=== PATIENT | male | born 1945 | race Caucasian/White ===

== ENCOUNTER 2017-08-01 05:07 | Day surgery (SDC) | payer MEDICARE, BC ==
[2017-07-31 13:13] LABS: BASOPHILS % (AUTO) 0.4 % (0-1); EOSINOPHILS # (AUTO) 0.5 X10'3 (0-0.9); EOSINOPHILS % (AUTO) 6.1 % (0-6); HEMATOCRIT 36.1 % (42.0-52.0); HEMOGLOBIN 11.9 g/dl (14.0-17.9); LYMPHOCYTES # (AUTO) 1.2 X10'3 (1.1-4.8); LYMPHOCYTES % (AUTO) 15.8 % (21-51); MEAN CORPUSCULAR HEMOGLOBIN 27.7 PG (27.0-31.0); MEAN CORPUSCULAR HGB CONC 32.9 % (33.0-36.5); MEAN CORPUSCULAR VOLUME 84.3 FL (78-98); MEAN PLATELET VOLUME 8.5 FL (7.4-10.4); MONOCYTES # (AUTO) 0.5 X10'3 (0-0.9); MONOCYTES % (AUTO) 7.2 % (2-12); NEUTROPHILS # (AUTO) 5.3 X10'3 (1.8-7.7); NEUTROPHILS % (AUTO) 70.5 % (42-75); PLATELET COUNT 223 X10'3 (140-440); RED BLOOD COUNT 4.28 X10'6 (4.70-6.10); RED CELL DISTRIBUTION WIDTH 15.9 % (11.5-14.5); WHITE BLOOD COUNT 7.5 X10'3 (4.5-11.0)
[2017-07-31 13:22] LABS: PROTHROMBIN TIME 10.7 SECONDS (9.0-12.0)
[2017-07-31 13:33] LABS: ANION GAP 6 (8-16); BLOOD UREA NITROGEN 24 MG/DL (7-18); BUN/CREATININE RATIO 5.1 (5.4-32.0); CHLORIDE 98 MMOL/L (99-107); CREATININE 4.68 MG/DL (0.60-1.10); GLUCOSE 122 MG/DL (70-104); POTASSIUM 3.8 MMOL/L (3.5-5.1); SODIUM 142 MMOL/L (135-145); TOTAL CARBON DIOXIDE 38.1 MMOL/L (24-32); eGFR 12 ML/MIN
[2017-07-31 13:34] LABS: ALBUMIN 3.8 G/DL (3.4-5.0); CALCIUM 8.9 MG/DL (8.5-10.1)
[2017-08-01] VITALS (20 sets, daily range): BP systolic 98–164; BP diastolic 67–104
[~2017-08-01] VITALS: Ht 198.1 cm; Wt 135.0 kg
[~2017-08-01 05:07] MED LIST: ATOR10TA70 PO; CICL6.1H4 INH; IPRA4AER IH; RIVA20TA PO; SOTA80TA69 PO; WHEA98PO PO
[2017-08-01] MEDS ORDERED: BENA20TA2 PO (05:55)
[2017-08-01] MEDS ORDERED: DICL-194 PO (05:55)
[2017-08-01] MEDS ORDERED: BECL7.3A INH (05:55)
[2017-08-01] MEDS ORDERED: atropine 0.1mg/ml 10ml syringe IV ONE (06:35)
[2017-08-01] MEDS ORDERED: LORazepam 0.5 MG tablet PO ONE (06:35)
[2017-08-01] MEDS ORDERED: morphine 10mg/ml inj. IV ONE (06:35)
[2017-08-01] MEDS ORDERED: MIDAZolam 1mg/ml 10ml vial IV ONE (06:35)
[2017-08-01] MEDS ORDERED: amiodarone in dextrose, iso-osm 150mg/100ml bag IV ONE (06:35)
[2017-08-01] MEDS ORDERED: normal saline 1000ml 1,000 ML IV SCH (06:50)
== END 2017-08-01 12:25 | disposition home or self-care (01) ==
LOC: SSTAY O 05:07
PROVIDERS: ATTEND Internal Medicine Cardiovascular Disease
DX: I48.91 Unspecified atrial fibrillation (principal); I08.0 Rheumatic disorders of both mitral and aortic valves; I10 Essential (primary) hypertension; E78.5 Hyperlipidemia, unspecified; J45.998 Other asthma; K21.9 Gastro-esophageal reflux disease without esophagitis; G47.30 Sleep apnea, unspecified; Z98.890 Other specified postprocedural states; Z79.899 Other long term (current) drug therapy
CPT/HCPCS: 36415; 80048; 85025; 85610; 92960; 93005; 93312; 93325; J0282; J2250; J2270; J7030; A4620; J0461

== ENCOUNTER 2018-10-15 06:02 | Day surgery (SDC) | payer MEDICARE, BC ==
[2018-10-14 12:10] LABS: BASOPHILS # (AUTO) 0.1 X10'3 (0-0.2); BASOPHILS % (AUTO) 1.2 % (0-1); EOSINOPHILS # (AUTO) 0.4 X10'3 (0-0.9); EOSINOPHILS % (AUTO) 7.6 % (0-6); LYMPHOCYTES # (AUTO) 0.9 X10'3 (1.1-4.8); LYMPHOCYTES % (AUTO) 16.4 % (21-51); MEAN CORPUSCULAR HEMOGLOBIN 29.8 PG (27.0-31.0); MEAN CORPUSCULAR HGB CONC 32.9 g/dL (33.0-36.5); MEAN CORPUSCULAR VOLUME 90.7 FL (78-98); MEAN PLATELET VOLUME 8.2 FL (7.4-10.4); MONOCYTES # (AUTO) 0.7 X10'3 (0-0.9); MONOCYTES % (AUTO) 12.1 % (2-12); NEUTROPHILS # (AUTO) 3.6 X10'3 (1.8-7.7); NEUTROPHILS % (AUTO) 62.7 % (42-75); PRE OP HEMATOCRIT 41.6 % (42.0-52.0); PRE OP HEMOGLOBIN 13.7 g/dL (14.0-17.9); PRE OP PLATELET COUNT 206 X10'3 (140-440); RED BLOOD COUNT 4.59 X10'6 (4.70-6.10); RED CELL DISTRIBUTION WIDTH 14.7 % (11.5-14.5)
[2018-10-14 12:22] LABS: ALBUMIN 3.6 G/DL (3.4-5.0); BLOOD UREA NITROGEN 29 MG/DL (7-18); BUN/CREATININE RATIO 20.4 (5.4-32.0); CALCIUM 9.1 MG/DL (8.5-10.1); CHLORIDE 107 MMOL/L (99-107); CREATININE 1.42 MG/DL (0.60-1.10); PRE OP ANION GAP 4 (8-16); PRE OP GLUCOSE 101 MG/DL (70-104); PRE OP POTASSIUM 4.9 MMOL/L (3.4-5.1); PRE OP SODIUM 137 MMOL/L (135-145); TOTAL CARBON DIOXIDE 26.5 MMOL/L (24-32); eGFR 49 ML/MIN
[2018-10-14 12:24] LABS: PRE OP PROTIME 10.6 SECONDS (9.0-12.0)
[~2018-10-15] VITALS: Ht 188 cm; Wt 139.5 kg
[2018-10-15] VITALS (13 sets, daily range): BP systolic 132–161; BP diastolic 71–87
[~2018-10-15 06:02] MED LIST changes: +BECL7.3A INH; +BENA20TA82 PO; -CICL6.1H4 INH; +DICL-194 PO; -RIVA20TA PO; -SOTA80TA69 PO; +SOTA80TA73 PO
[2018-10-15] MEDS ORDERED: normal saline 1000ml 1,000 ML IV SCH ×2 (06:25→10:28)
[2018-10-15] MEDS ORDERED: APIX5TAB3 PO (06:37)
[2018-10-15] MEDS ORDERED: AMIO200T40 PO (06:37)
[2018-10-15] MEDS ORDERED: CARV3.122 PO (06:37)
[2018-10-15] MEDS ORDERED: ceFAZolin inj. 3,000 MG in dextrose 5%-water 100 ML IV ONE (07:30)
[2018-10-15] MEDS ORDERED: cefazolin/dext.iso 2gm/100ml 100 ML IV ONE (07:39)
[2018-10-15] MEDS ORDERED: midazolam 2 mg/2 ml injection ONE ×2 (07:39→09:03)
[2018-10-15] MEDS ORDERED: fentaNYL/PF 50MCG/1 ML 2ML syringe ONE ×2 (07:39→09:03)
[2018-10-15] MEDS ORDERED: LIDOcaine 1% w/EPI 1:100,000 30ml vial (MDV) ONE (07:39)
[2018-10-15] MEDS ORDERED: HYDROcodone/acetaminophen 5mg/325mg tablet PO PRN (10:30)
[2018-10-15] MEDS ORDERED: HYDROcodone/acetaminophen 10/325mg tab PO PRN (10:30)
== END 2018-10-15 15:10 | disposition home or self-care (01) ==
LOC: SSTAY O 06:02
PROVIDERS: ATTEND Internal Medicine Cardiovascular Disease
DX: I49.5 Sick sinus syndrome (principal); I10 Essential (primary) hypertension; E78.5 Hyperlipidemia, unspecified; J45.909 Unspecified asthma, uncomplicated; M19.90 Unspecified osteoarthritis, unspecified site; K21.9 Gastro-esophageal reflux disease without esophagitis; I48.0 Paroxysmal atrial fibrillation; G47.30 Sleep apnea, unspecified
CPT/HCPCS: 33208; 36415; 71046; 80048; 85025; 85610; 85730; 93005; 99152; 99153; A6449; C1785; C1898; J0690; J2250; J3010; J3490; J7030; J7060; A4565; A4620; C1894

== ENCOUNTER 2020-10-18 11:38 | Outpatient (CLI) | payer MEDICARE, BC ==
[~2020-10-18 11:38] MED LIST changes: +AMIO200T61 PO; +APIX5TAB3 PO; +CARV3.122 PO; -SOTA80TA73 PO
== END 2020-10-18 23:59 | disposition home or self-care (01) ==
LOC: RT 11:38
PROVIDERS: ATTEND Internal Medicine Pulmonary Disease
DX: J45.909 Unspecified asthma, uncomplicated (principal)
CPT/HCPCS: 94010; 94618

== ENCOUNTER 2021-03-09 08:12 | Outpatient (CLI) | payer MEDICARE, BC ==
[~2021-03-09] VITALS: Ht 188 cm; Wt 132.4 kg
[2021-03-09 09:04] LABS: TOTAL HEMOGLOBIN 13.8 G/dl (14.0-18.0)
[2021-03-09] MEDS ORDERED: albuterol 2.5 MG/3 ML nebule NEB ONE (09:30)
== END 2021-03-09 23:59 | disposition home or self-care (01) ==
LOC: RT 08:12
PROVIDERS: ATTEND Internal Medicine Cardiovascular Disease
DX: R94.2 Abnormal results of pulmonary function studies (principal); I51.7 Cardiomegaly; J98.11 Atelectasis; Z79.899 Other long term (current) drug therapy
CPT/HCPCS: 71046; 85018; 94060; 94727; 94729; 94760

== ENCOUNTER 2022-08-08 07:01 | Day surgery (SDC) | payer OTHER ==
[2022-08-07 13:14] LABS: BASOPHILS % (AUTO) 0.6 % (0-1); EOSINOPHILS # (AUTO) 0.4 X10'3 (0-0.9); EOSINOPHILS % (AUTO) 7.1 % (0-6); HEMATOCRIT 39.4 % (42.0-52.0); LYMPHOCYTES % (AUTO) 18.4 % (21-51); MEAN CORPUSCULAR HEMOGLOBIN 31.3 PG (27.0-31.0); MEAN CORPUSCULAR HGB CONC 33.1 g/dL (33.0-36.5); MEAN CORPUSCULAR VOLUME 94.5 FL (78-98); MEAN PLATELET VOLUME 8.5 FL (7.4-10.4); MONOCYTES # (AUTO) 0.4 X10'3 (0-0.9); MONOCYTES % (AUTO) 8.2 % (2-12); NEUTROPHILS # (AUTO) 3.5 X10'3 (1.8-7.7); NEUTROPHILS % (AUTO) 65.7 % (42-75); PLATELET COUNT 209 X10'3 (140-440); RED BLOOD COUNT 4.17 X10'6 (4.70-6.10); RED CELL DISTRIBUTION WIDTH 15.2 % (11.5-14.5); WHITE BLOOD COUNT 5.3 X10'3 (4.5-11.0)
[2022-08-07 13:20] LABS: ALBUMIN 3.5 G/DL (3.4-5.0); ANION GAP 7 (8-16); BLOOD UREA NITROGEN 26 MG/DL (7-18); BUN/CREATININE RATIO 17.9 (5.4-32.0); CALCIUM 8.6 MG/DL (8.5-10.1); CHLORIDE 106 MMOL/L (99-107); CREATININE 1.45 MG/DL (0.60-1.10); GLUCOSE 89 MG/DL (70-104); POTASSIUM 4.7 MMOL/L (3.5-5.1); SODIUM 138 MMOL/L (135-145); TOTAL CARBON DIOXIDE 25.2 MMOL/L (24-32); eGFR 47 ML/MIN
[2022-08-08] VITALS (9 sets, daily range): BP systolic 98–127; BP diastolic 61–81
[~2022-08-08] VITALS: Ht 185.4 cm; Wt 127.9 kg
[~2022-08-08 07:01] MED LIST changes: +ADV50250 IH; +ALBU18HF2 INH; +AMLO2.5T2 PO; -APIX5TAB3 PO; +ASPI81TA52 PO; -BECL7.3A INH; +CARV-50 PO; -CARV3.122 PO; -IPRA4AER IH; +TIOT18CA3 INH; -WHEA98PO PO
[2022-08-08] MEDS ORDERED: amiodarone 150mg/dext, iso-os 100 ML IV ONE (07:20)
[2022-08-08] MEDS ORDERED: atropine 0.1mg/ml 10ml syringe IV ONE (07:20)
[2022-08-08] MEDS ORDERED: normal saline 1000ml 1,000 ML IV SCH (07:20)
[2022-08-08] MEDS ORDERED: MIDAZolam 1mg/ml 10ml vial IV ONE (07:20)
[2022-08-08] MEDS ORDERED: diphenhydrAMINE 25mg capsule PO ONE (07:20)
[2022-08-08] MEDS ORDERED: morphine 10mg/ml inj. IV ONE (07:20)
[2022-08-08] MEDS ORDERED: LORazepam 0.5 MG tablet PO ONE (07:20)
[2022-08-08] MEDS ORDERED: DICL-157 PO (07:54)
[2022-08-08] MEDS ORDERED: LISI40TA13 PO (07:57)
[2022-08-08] MEDS ORDERED: WIXELA (07:57)
[2022-08-08] MEDS ORDERED: APIX5TAB3 PO (07:57)
[2022-08-08] MEDS ORDERED: ACET-3209 PO (07:57)
[2022-08-08] MEDS ORDERED: MULT-1085 PO (07:57)
== END 2022-08-08 10:55 | disposition home or self-care (01) ==
LOC: SSTAY O 07:01
PROVIDERS: ATTEND Internal Medicine Cardiovascular Disease
DX: I48.19 Other persistent atrial fibrillation (principal); I10 Essential (primary) hypertension; E78.5 Hyperlipidemia, unspecified; I49.5 Sick sinus syndrome; G47.30 Sleep apnea, unspecified; M19.90 Unspecified osteoarthritis, unspecified site; K21.9 Gastro-esophageal reflux disease without esophagitis; J45.909 Unspecified asthma, uncomplicated; Z95.0 Presence of cardiac pacemaker; Z98.890 Other specified postprocedural states; Z79.899 Other long term (current) drug therapy; Z79.01 Long term (current) use of anticoagulants; Z82.49 Family history of ischemic heart disease and other diseases of the circulatory system
CPT/HCPCS: 36415; 80048; 85025; 85610; 92960; 93005; J2250; J2274; J7030; Q0163; A4620

== ENCOUNTER 2023-05-18 08:01 | Day surgery (SDC) | payer OTHER ==
[2023-05-18] VITALS (10 sets, daily range): BP systolic 113–135; BP diastolic 67–93; PULSE 80–84; RESP 14–22; TEMP 97.7; O2SAT 94–97
[~2023-05-18] VITALS: Ht 185.4 cm; Wt 130.6 kg
[~2023-05-18 08:01] MED LIST changes: -ALBU18HF2 INH; +ALBU8HFA PO; +AMI200T PO; -AMIO200T61 PO; -AMLO2.5T2 PO; +APIX5TAB3 PO; -ASPI81TA52 PO; -BENA20TA82 PO; +BENA20TA83 PO; +DICL-157 PO; -DICL-194 PO; +LISI40TA13 PO; +MULT-1085 PO; +SOTA80TA PO
[2023-05-18] MEDS ORDERED: TIOT4MIS2 IH (08:31)
[2023-05-18] MEDS ORDERED: ACET650T78 PO (08:34)
[2023-05-18] MEDS ORDERED: diphenhydrAMINE 25mg capsule PO ONE (09:05)
[2023-05-18] MEDS ORDERED: amiodarone 150mg/dext, iso-os 100 ML IV ONE (09:05)
[2023-05-18] MEDS ORDERED: MIDAZolam 1mg/ml 10ml vial IV ONE (09:05)
[2023-05-18] MEDS ORDERED: LORazepam 0.5 MG tablet PO ONE (09:05)
[2023-05-18] MEDS ORDERED: atropine 0.1mg/ml 10ml syringe IV ONE (09:05)
[2023-05-18] MEDS ORDERED: morphine 10mg/ml inj. IV ONE (09:05)
[2023-05-18] MEDS ORDERED: normal saline 1000ml 1,000 ML IV SCH (09:05)
[2023-05-18 09:30] LABS: INR 1.1 INR; PROTHROMBIN TIME 11.4 SECONDS (9.0-12.0)
== END 2023-05-18 12:00 | disposition home or self-care (01) ==
LOC: SSTAY O 08:01
PROVIDERS: ATTEND Internal Medicine Cardiovascular Disease
DX: I48.0 Paroxysmal atrial fibrillation (principal); G47.30 Sleep apnea, unspecified; E78.5 Hyperlipidemia, unspecified; I10 Essential (primary) hypertension; M19.90 Unspecified osteoarthritis, unspecified site; K21.9 Gastro-esophageal reflux disease without esophagitis; I49.5 Sick sinus syndrome; J45.909 Unspecified asthma, uncomplicated; J98.6 Disorders of diaphragm; Z95.0 Presence of cardiac pacemaker; Z79.899 Other long term (current) drug therapy; Z79.01 Long term (current) use of anticoagulants
CPT/HCPCS: 85610; 92960; 93005; J2250; J2274; J7030; A4620

== ENCOUNTER 2023-05-24 07:54 | Day surgery (SDC) | payer OTHER ==
[2023-05-17 15:19] LABS: BASOPHILS # (AUTO) 0.1 X10'3 (0-0.2); BASOPHILS % (AUTO) 1.4 % (0-1); EOSINOPHILS # (AUTO) 0.6 X10'3 (0-0.9); EOSINOPHILS % (AUTO) 8.4 % (0-6); LYMPHOCYTES # (AUTO) 1.1 X10'3 (1.1-4.8); MEAN CORPUSCULAR HEMOGLOBIN 32.3 PG (27.0-31.0); MEAN CORPUSCULAR HGB CONC 34.3 g/dL (33.0-36.5); MEAN CORPUSCULAR VOLUME 94.2 FL (78-98); MEAN PLATELET VOLUME 8.4 FL (7.4-10.4); MONOCYTES # (AUTO) 0.4 X10'3 (0-0.9); NEUTROPHILS # (AUTO) 4.8 X10'3 (1.8-7.7); NEUTROPHILS % (AUTO) 68.2 % (42-75); PRE OP HEMATOCRIT 41.5 % (42.0-52.0); PRE OP HEMOGLOBIN 14.2 g/dL (14.0-17.9); PRE OP PLATELET COUNT 209 X10'3 (140-440); RED CELL DISTRIBUTION WIDTH 13.5 % (11.5-14.5)
[2023-05-17 15:28] LABS: ALBUMIN 3.5 G/DL (3.4-5.0); ALKALINE PHOSPHATASE 70 IU/L (46-116); BLOOD UREA NITROGEN 32 MG/DL (7-18); BUN/CREATININE RATIO 23.2 (10.0-20.0); CHLORIDE 105 MMOL/L (99-107); CREATININE 1.38 MG/DL (0.60-1.10); PRE OP ALT 35 U/L (30-65); PRE OP ANION GAP 5 (8-16); PRE OP AST 20 U/L (10-37); PRE OP BILIRUB, TOTAL 0.4 MG/DL (0.0-1.0); PRE OP GLUCOSE 104 MG/DL (70-104); PRE OP POTASSIUM 4.7 MMOL/L (3.4-5.1); PRE OP SODIUM 138 MMOL/L (135-145); TOTAL CARBON DIOXIDE 27.7 MMOL/L (24-32); TOTAL PROTEIN 7.1 G/DL (6.4-8.2); eGFR 50 ML/MIN
[~2023-05-24] VITALS: Ht 188 cm; Wt 130.0 kg
[2023-05-24] VITALS (23 sets, daily range): BP systolic 71–164; BP diastolic 62–87; PULSE 16–82; RESP 11–18; TEMP 96.3–97.6; O2SAT 92–98
[~2023-05-24 07:54] MED LIST changes: +ACET650T78 PO; -ALBU8HFA PO; -AMI200T PO; -CARV-50 PO; +DOCUMENT DATE & TIME OF BETA-BLOCKER PO ONE; -LISI40TA13 PO; -MULT-1085 PO; -TIOT18CA3 INH; +TIOT4MIS2 IH; +acetaminophen 325mg tablet PO ONE; +cefazolin 2gm/D5W 100mL 100 ML IV ONE; +celeCOXIB 100mg capsule PO ONE; +famotidine 20mg tablet PO ONE; +gabapentin 300mg capsule PO ONE; +metoclopramide 5 mg/ml inj IV ONE; +oxyCODONE SR 10mg (sust. release) tab PO ONE; +tranexamic acid inj. 1,000 MG in normal saline IV soln 100ML IV ONE; +vancomycin 1,500 MG in NS 300ml IV soln IV ONE
[2023-05-24] MEDS ORDERED: non-formulary drug (Fluticasone/Salmeterol* (Advair 250-50 Diskus*) 1 PUFF) IH SCH (08:00)
[2023-05-24] MEDS: ringers solution, lacted 1,000 ML IV SCH ×3 (08:57→18:56)
[2023-05-24] MEDS ORDERED: MIDAZolam 1 MG/ML 5ML VIAL ONE (10:23)
[2023-05-24] MEDS ORDERED: fentaNYL/PF 50MCG/1 ML 2ML syringe ONE (10:23)
[2023-05-24] MEDS ORDERED: ROPIVAcaine 0.5% (5mg/ml) 30ml vial ONE (10:38)
[2023-05-24] MEDS ORDERED: vancomycin 1,000mg inj ONE (10:55)
[2023-05-24] MEDS ORDERED: BUPIVACAINE/MELOXICAM 14 ML VIAL IL ONE ×2 (10:56→11:22)
[2023-05-24] MEDS ORDERED: ondansetron/PF 4mg/2ml inj IV PRN ×2 (11:45→14:00)
[2023-05-24] MEDS ORDERED: morphine 4 MG/ML inj SYRINge IV PRN (11:45)
[2023-05-24] MEDS ORDERED: meperidine/PF 25mg/ml syringe IV PRN ×3 (11:45)
[2023-05-24] MEDS ORDERED: morphine 2 MG/ML inj. syringe IV PRN (11:45)
[2023-05-24] MEDS ORDERED: ringers solution, lacted 1,000 ML IV SCH (11:45)
[2023-05-24] MEDS ORDERED: proCHLORperazine 10 MG/2 ml inj IV PRN (11:45)
[2023-05-24] MEDS ORDERED: BUPIVAcaine/PF 7.5mg/ml (0.75%) 10ml vial ONE (11:48)
[2023-05-24] MEDS ORDERED: HYDROcodone/acetaminophen 10/325mg tab PO PRN ×2 (12:00→16:00)
[2023-05-24] MEDS ORDERED: HYDROmorphone 1 mg/ml syringe IV PRN (12:00)
[2023-05-24] MEDS ORDERED: naloxone 0.4 mg/ml inj IV PRN (12:00)
[2023-05-24] MEDS ORDERED: HYDROmorphone inj. 0.5 MG/0.5 ML DISP.SYRIN IV PRN (12:00)
[2023-05-24] MEDS ORDERED: ePHEDrine 50MG/ML INJ. ONE (12:29)
--- NOTE | 2023-05-24 12:37 | NUR ---
Received from OR via BED, accompanied by Anesthesiologist DR PITTS and report given by Anesthesiologist. PATIENT AWAKE, NO S/S OF PAIN, V/S WNL, SCD ON, 20G TO L HAND, KAYLAH drsg to LEFT KNEE CDI. WILL CONTINUE TO MONITOR Addendum: 05/24/23 at 1256 by Holli Horton RN Amended: Links added.
[2023-05-24] MEDS: gabapentin 300mg capsule PO SCH ×2 (13:00→19:27)
--- NOTE | 2023-05-24 13:47 | NUR ---
PATIENT HAS MET ALL CRITERIA FOR TRANSFER TO ORTHO FLOOR. VSS. DRESSINGS INTACT. BED LOW, CALL LIGHT PRESENT AND 2 RAILS UP. RN PRESENT TO ACCEPT CARE OF PATIENT AND REPORT HAS BEEN CALLED. ALL QUESTIONS ANSWERED TO ACCEPTING RN. Addendum: 05/24/23 at 1425 by Trae Holcomb RN Amended: Links added.
[2023-05-24] MEDS ORDERED: diphenhydrAMINE 25mg capsule PO PRN ×2 (14:00→21:00)
[2023-05-24] MEDS ORDERED: acetaminophen 325mg tablet PO PRN (16:00)
[2023-05-24] MEDS ORDERED: tranexamic acid inj. 850 MG in normal saline 100ml IV soln 91.5 ML IV ONE (16:00)
[2023-05-24] MEDS ORDERED: bisacodyl 10mg suppository rectal RC PRN (17:00)
[2023-05-24] MEDS ORDERED: magnesium 4gm in 100ml NS 100 ML IV PRN (17:40)
[2023-05-24] MEDS ORDERED: magnesium 2GM in 50ml NS 50 ML IV PRN (17:40)
[2023-05-24] MEDS ORDERED: magnesium Cl slow-release 64mg tablet PO PRN (17:40)
[2023-05-24] MEDS ORDERED: potassium Cl 20 mEq SR tablet PO PRN ×2 (17:40)
[2023-05-24] MEDS ORDERED: ondansetron 4mg rapidly disintigrating tab PO PRN (17:40)
[2023-05-24] MEDS ORDERED: mag hydrox/Alum hydrox/simeth 30ml oral suspension PO PRN (17:40)
[2023-05-24] MEDS ORDERED: potassium Cl 40MEQ/1/2NS 520ml 520 ML IV PRN (17:40)
[2023-05-24] MEDS ORDERED: magnesium hydroxide 30ml (MOM) UD suspension PO PRN ×2 (17:40→21:00)
--- NOTE | 2023-05-24 18:00 | NUR ---
Patient in room ORTHO 4016. I have received report from JENNIFER Martino and had the opportunity to ask questions and assume patient care.
--- NOTE | 2023-05-24 18:33 | NUR ---
Problems reprioritized. Patient report given, questions answered & plan of care reviewed with JENNIFER Sam.
[2023-05-24] MEDS: potassium cl 20mEq in 1/2 NS 1,000 ML IV SCH ×2 (18:53→20:01)
[2023-05-24] MEDS: K and/or MAG REPLACEMENT MC SCH (18:58)
[2023-05-24] MEDS ORDERED: traMADol 50MG tablet PO PRN ×2 (19:35)
[2023-05-24 19:39] LABS: MAGNESIUM 1.6 MG/DL (1.5-2.4); POTASSIUM 4.6 MMOL/L (3.5-5.1)
[2023-05-24] MEDS ORDERED: sotalol HCl 40mg (1/2 tablet) PO SCH (20:00)
[2023-05-24] MEDS ORDERED: VANCOMYCIN 1,500MG in normal saline IV soln 300 ML IV ONE (20:00)
[2023-05-24] MEDS ORDERED: VANCOMYCIN 1,500MG inj. 1,500 MG in normal saline 500ml IV soln 300 ML IV SCH (20:00)
[2023-05-24] MEDS: lisinopril 10 MG tablet PO SCH (20:00)
[2023-05-24] MEDS: apixaban 5mg tablet PO SCH (20:03)
[2023-05-24] MEDS: ascorbic acid 500mg tablet PO SCH (20:03)
[2023-05-24] MEDS: sotalol HCl 40mg (1/2 tablet) PO SCH (20:04)
[2023-05-24] MEDS ORDERED: sennosides 8.6mg tablet PO SCH (21:00)
[2023-05-24] MEDS ORDERED: ipratropium 0.5 MG/2.5ML nebule IH SCH (21:00)
[2023-05-24] MEDS ORDERED: atorvastatin 10mg tablet PO SCH (21:00)
[2023-05-24] MEDS ORDERED: albuterol 2.5 MG/3 ML nebule NEB SCH (21:00)
[2023-05-24] MEDS: ipratropium/albuterol 3ml nebule NEB SCH (22:23)
[2023-05-24] MEDS: budesonide 0.5mg/2ml UD nebule IH SCH (22:23)
[2023-05-24] MEDS: acetaminophen 325mg tablet PO PRN (22:46)
[2023-05-25] VITALS (8 sets, daily range): BP systolic 104–108; BP diastolic 63–79; PULSE 79–94; RESP 16–20; TEMP 97–97.9; O2SAT 92–94
[2023-05-25] MEDS: ipratropium/albuterol 3ml nebule NEB SCH ×2 (03:55→08:22)
[2023-05-25] MEDS: potassium cl 20mEq in 1/2 NS 1,000 ML IV SCH (05:00)
[2023-05-25] MEDS: acetaminophen 325mg tablet PO PRN ×2 (05:34→11:48)
[2023-05-25 06:30] LABS: BASOPHILS % (AUTO) 0.2 % (0-1); EOSINOPHILS % (AUTO) 0 % (0-6); HEMATOCRIT 35.3 % (42.0-52.0); HEMOGLOBIN 12.1 g/dl (14.0-17.9); LYMPHOCYTES # (AUTO) 0.7 X10'3 (1.1-4.8); LYMPHOCYTES % (AUTO) 5.2 % (21-51); MEAN CORPUSCULAR HEMOGLOBIN 32.2 PG (27.0-31.0); MEAN CORPUSCULAR HGB CONC 34.3 g/dL (33.0-36.5); MEAN CORPUSCULAR VOLUME 93.8 FL (78-98); MEAN PLATELET VOLUME 8.2 FL (7.4-10.4); MONOCYTES # (AUTO) 1.1 X10'3 (0-0.9); NEUTROPHILS # (AUTO) 11.8 X10'3 (1.8-7.7); NEUTROPHILS % (AUTO) 86.6 % (42-75); PLATELET COUNT 176 X10'3 (140-440); RED BLOOD COUNT 3.76 X10'6 (4.70-6.10); RED CELL DISTRIBUTION WIDTH 13.4 % (11.5-14.5); WHITE BLOOD COUNT 13.7 X10'3 (4.5-11.0)
--- NOTE | 2023-05-25 06:36 | NUR ---
Problems reprioritized. Patient report given, questions answered & plan of care reviewed with JENNIFER Madison.
[2023-05-25 06:55] LABS: ALBUMIN 2.8 G/DL (3.4-5.0); ANION GAP 5 (8-16); BLOOD UREA NITROGEN 18 MG/DL (7-18); BUN/CREATININE RATIO 15.5 (10.0-20.0); CALCIUM 8.4 MG/DL (8.5-10.1); CHLORIDE 104 MMOL/L (99-107); CREATININE 1.16 MG/DL (0.60-1.10); GLUCOSE 127 MG/DL (70-104); MAGNESIUM 1.6 MG/DL (1.5-2.4); PHOSPHORUS 2.5 MG/DL (2.3-4.5); POTASSIUM 4.8 MMOL/L (3.5-5.1); SODIUM 135 MMOL/L (135-145); TOTAL CARBON DIOXIDE 26.1 MMOL/L (24-32); eCRCL 62 ML/MIN; eGFR 61 ML/MIN
--- NOTE | 2023-05-25 06:57 | NUR ---
Patient in room ORTHO 4016. I have received report from Cecy RODRIGUEZ and had the opportunity to ask questions and assume patient care.
[2023-05-25] MEDS: K and/or MAG REPLACEMENT MC SCH (08:00)
[2023-05-25] MEDS ORDERED: multivitamins, therapeutics tablet PO SCH (08:00)
[2023-05-25] MEDS: budesonide 0.5mg/2ml UD nebule IH SCH (08:23)
[2023-05-25] MEDS: gabapentin 300mg capsule PO SCH (08:26)
[2023-05-25] MEDS: sotalol HCl 40mg (1/2 tablet) PO SCH (08:27)
[2023-05-25] MEDS: ascorbic acid 500mg tablet PO SCH (08:27)
[2023-05-25] MEDS: apixaban 5mg tablet PO SCH (08:27)
[2023-05-25] MEDS: lisinopril 10 MG tablet PO SCH (08:28)
--- NOTE | 2023-05-25 09:51 | NUR ---
Per EMR pt POD #1 s/p left TKA. Written high protein education with ONS coupons and RD contact information mailed to patient's address found in EMR d/t short staffing. Pt currently on a regular diet and eating well, documented with 100% PO intake of first meal. Will continue to follow and provide verbal education as able. Addendum: 05/25/23 at [address] Amended: Links added.
--- NOTE | 2023-05-25 12:32 | NUR ---
patient ambulated with PT, cleared to go home. Ambulated further with family member 30ft. Seen by Dr Carrera is for DC. All Dc instructions given to patient. patient DC home with Jeison dressing and all post op instructions, in stable condition, via private car to home.
[2023-05-25] MEDS ORDERED: celeCOXIB 100mg capsule PO SCH (20:00)
== END 2023-05-25 12:26 | disposition home or self-care (01) ==
LOC: PAS 07:54 → ORTHO 4S 17:18 → PAS 05-25 12:26
PROVIDERS: ATTEND Orthopaedic Surgery
DX: M17.12 Unilateral primary osteoarthritis, left knee (principal); I10 Essential (primary) hypertension; E66.01 Morbid (severe) obesity due to excess calories; K21.9 Gastro-esophageal reflux disease without esophagitis; J45.909 Unspecified asthma, uncomplicated; G47.33 Obstructive sleep apnea (adult) (pediatric); I48.91 Unspecified atrial fibrillation; Z96.651 Presence of right artificial knee joint; Z68.37 Body mass index [BMI] 37.0-37.9, adult
CPT/HCPCS: 27447; 36415; 73560; 80048; 80053; 82948; 83735; 84100; 84132; 85025; 86885; 86900; 86901; 87081; 93005; 94640; 94760; 97116; 97161; 97530; C1713; C1776; J0690; J2250; J2765; J2795; J3010; J3370; J3480; J3490; J7030; J7040; J7060; J7120; Z7506; Z7508; Z7512; A4215; A7000; G0378